=== PATIENT | male | born 1970 | race African-American/Black ===

== ENCOUNTER 2024-11-16 12:57 | Emergency (ER) | payer MEDICAID, OTHER ==
[~2024-11-16] VITALS: Ht 185.4 cm; Wt 104.0 kg
[2024-11-16 13:10] VITALS: TEMP 36.9; O2SAT 100
[2024-11-16] MEDS: BACITRACIN ZINC OINT UDPKT TOP ONE (13:30)
[2024-11-16] MEDS: IBUPROFEN 600MG TABLET PO ONE (13:45)
[2024-11-16] MEDS: LIDOCAINE HCL 1% 20ML VIAL INFIL ONE (13:45)
[2024-11-16] MEDS ORDERED: SULF1TAB48 MT (15:32)
[2024-11-16] MEDS ORDERED: IBUP-2029 MT (15:32)
[2024-11-16 15:52] VITALS: BP 118/75; PULSE 71; RESP 12; O2SAT 95
== END 2024-11-16 15:54 | disposition home or self-care (01) ==
LOC: ER 12:57
DX: M79.632 Pain in left forearm (principal); M79.89 Other specified soft tissue disorders; Z98.890 Other specified postprocedural states; Z79.899 Other long term (current) drug therapy
CPT/HCPCS: 73090; 10060; 99283; J2003; Z7610